=== PATIENT | female | born 1960 | race African-American/Black ===

== ENCOUNTER → 2018-04-02 | Day surgery (SDC) | payer BC, OTHER ==
[2018-04-01 15:57] VITALS: BMI 32.9
[~2018-04-02] MED LIST: ACETAMINOPHEN 325 MG TABLET (FP) PO PRN; BSS (NA/CA/MG/K) BALANCED SALT SOLUTION OPHTH SOLN 15 ML BOTTLE OS ONE; CHONDROITIN SU A/HYALUR SOD 1 KIT IO ONE; CYCLOPENTOLATE HCL 1% OPHTH SOLN 2 ML BOTTLE OP SCH; CYCLOPENTOLATE HCL 1% OPHTH SOLN 2 ML BOTTLE OS ONE; EPINEPHrine/PF 1 MG/1 ML (1:1,000) AMPULE IO ONE; KETOROLAC TROMETHAMINE 0.5% EYE DROP 1 DROP DROPS OP SCH; KETOROLAC TROMETHAMINE 0.5% EYE DROP 1 DROP DROPS OS ONE; LIDOCAINE HCL 1% PRESERVATIVE FREE - 30ML VIAL IO ONE; OFLOXACIN 0.3% OPHTHALMIC SOLUTION 5 ML BOTTLE OP SCH; OFLOXACIN 0.3% OPHTHALMIC SOLUTION 5 ML BOTTLE OS ONE; PHENYLEPHRINE 2.5% OPHTH SOLN 15 ML BOTTLE OP SCH; PHENYLEPHRINE 2.5% OPHTH SOLN 15 ML BOTTLE OS ONE; POVIDONE-IODINE 5% OPHTHALMIC PREP 30 ML SOLUTION OS ONE; TETRACAINE 0.5% OPHTH SOLN 2 ML BOTTLE OS ONE; TROPICAMIDE 0.5% OPHTHALMIC SOLN 15 ML BOTTLE OS ONE; TROPICAMIDE 1% OPHTH SOLN 15 ML BOTTLE OP SCH; TROPICAMIDE 1% OPHTH SOLN 15 ML BOTTLE OS ONE
[2018-04-02 13:16] VITALS: PULSE 89
[2018-04-02 15:50] VITALS: BP 137/74; TEMP 97.9
--- NOTE | 2018-04-03 08:01 | SPEC ---
DATE OF SURGERY: DATE OF DICTATION: 04/02/2018 OPERATION: Phacoemulsification with posterior chamber intraocular lens implantation, left eye. Lens used [id number], 23.0 Diopter power, Serial No. [id number]. 045/ PREOPERATIVE DIAGNOSIS: Cataract, left eye. POSTOPERATIVE DIAGNOSIS: Cataract, left eye. SURGEON: Antonina Zhu M.D. ANESTHESIA: Topical MAC. COMPLICATIONS: None. PROCEDURE: The patient was brought to the operating room and correctly identified along with the operative site and the correct intraocular lens poon. The patient was then prepped and draped in the usual sterile fashion including 5% Betadine solution in the conjunctival sac and an eyelid drape. An eyelid speculum was then placed in the eye. A paracentesis port was created and approximately 0.5 mL of preservative free Lidocaine was then injected into the eye. Viscoelastic was then injected to inflate the anterior chamber. A temporal clear corneal wound was created. A continuous circular capsulorrhexis was performed. The nucleus was then hydrodissected with BSS and removed with phacoemulsification. The remaining cortical material was irrigated and aspirated. Viscoelastic was injected to inflate the capsular bag and the intraocular lens was then implanted into the capsular bag. The remaining Viscoelastic was irrigated and aspirated from the eye. The IOL was noted to be well centered and completely covered by the anterior capsulorrhexis. Topical vancomycin was placed and the eye patched and shielded. All wounds were tested and found to be watertight. No suture was placed. The eye was then shielded. The patient was then discharged from the operating room in stable condition. ANTONINA ZHU M.D. [id number]
== END | disposition home or self-care (01) ==
LOC: JASU-SURG 10:00
PROVIDERS: ATTEND Ophthalmology
PROC: 08RK3JZ Replacement of Left Lens with Synthetic Substitute, Percutaneous Approach (ICD-10-PCS; principal; 2018-04-02 12:00)
DX: H26.9 Unspecified cataract (principal)

== ENCOUNTER 2018-04-16 06:55 | Day surgery (SDC) | payer BC, OTHER ==
[2018-04-15 08:44] VITALS: BMI 32.9
[2018-04-16] MEDS ORDERED: CYCLOPENTOLATE HCL 1% OPHTH SOLN 2 ML BOTTLE ONE (07:12)
[2018-04-16] MEDS ORDERED: PHENYLEPHRINE 2.5% OPHTH SOLN 15 ML BOTTLE ONE (07:12)
[2018-04-16] MEDS ORDERED: OFLOXACIN 0.3% OPHTHALMIC SOLUTION 5 ML BOTTLE ONE (07:12)
[2018-04-16 07:13] VITALS: TEMP 97.5
[2018-04-16] MEDS ORDERED: TROPICAMIDE 1% OPHTH SOLN 15 ML BOTTLE ONE (07:13)
[2018-04-16] MEDS ORDERED: PHENYLEPHRINE 2.5% OPHTH SOLN 15 ML BOTTLE OD ONE ×3 (07:15→07:25)
[2018-04-16] MEDS ORDERED: TROPICAMIDE 1% OPHTH SOLN 15 ML BOTTLE OD ONE ×3 (07:15→07:25)
[2018-04-16] MEDS ORDERED: OFLOXACIN 0.3% OPHTHALMIC SOLUTION 5 ML BOTTLE OD ONE ×3 (07:15→07:25)
[2018-04-16] MEDS ORDERED: CYCLOPENTOLATE HCL 1% OPHTH SOLN 2 ML BOTTLE OD ONE ×3 (07:15→07:25)
[2018-04-16] MEDS ORDERED: ACETAMINOPHEN 325 MG TABLET (FP) PO PRN (07:55)
[2018-04-16] MEDS ORDERED: KETOROLAC TROMETHAMINE 0.5% EYE DROP 1 DROP DROPS OD SCH (08:00)
[2018-04-16] MEDS ORDERED: OFLOXACIN 0.3% OPHTHALMIC SOLUTION 5 ML BOTTLE OD SCH (08:00)
[2018-04-16] MEDS ORDERED: PHENYLEPHRINE 2.5% OPHTH SOLN 15 ML BOTTLE OD SCH (08:00)
[2018-04-16] MEDS ORDERED: TROPICAMIDE 1% OPHTH SOLN 15 ML BOTTLE OD SCH (08:00)
[2018-04-16] MEDS ORDERED: CYCLOPENTOLATE HCL 1% OPHTH SOLN 2 ML BOTTLE OD SCH (08:00)
[2018-04-16] MEDS ORDERED: MIDAZOLAM HCL 2 MG/2 ML SINGLE DOSE VIAL ONE (08:07)
[2018-04-16] MEDS ORDERED: ADENOSINE 6 MG/2 ML VIAL IVPUSH ONE (08:07)
[2018-04-16] MEDS ORDERED: TETRACAINE 0.5% OPHTH SOLN 2 ML BOTTLE OD ONE (08:12)
[2018-04-16] MEDS ORDERED: POVIDONE-IODINE 5% OPHTHALMIC PREP 30 ML SOLUTION OD ONE (08:15)
[2018-04-16] MEDS ORDERED: LIDOCAINE HCL 1% PRESERVATIVE FREE - 30ML VIAL IO ONE (08:23)
[2018-04-16] MEDS ORDERED: CHONDROITIN SU A/HYALUR SOD 1 KIT IO ONE (08:23)
[2018-04-16] MEDS ORDERED: BSS (NA/CA/MG/K) BALANCED SALT SOLUTION OPHTH SOLN 15 ML BOTTLE OD ONE (08:23)
[2018-04-16] MEDS ORDERED: EPINEPHrine/PF 1 MG/1 ML (1:1,000) AMPULE SQ ONE (08:30)
--- NOTE | 2018-04-16 09:00 | SPEC ---
DATE OF OPERATION: DATE OF DICTATION: 04/16/2018 OPERATION: Phacoemulsification with posterior chamber intraocular lens implantation, right eye. Lens used SN60WF, 23.0 Diopter power, Serial No. [id number]. PREOPERATIVE DIAGNOSIS: Cataract, right eye. POSTOPERATIVE DIAGNOSIS: Cataract, right eye. SURGEON: Antonina Zhu M.D. ANESTHESIA: Topical MAC. COMPLICATIONS: None. PROCEDURE: The patient was brought to the operating room and correctly identified along with the operative site and the correct intraocular lens poon. The patient was then prepped and draped in the usual sterile fashion including 5% Betadine solution in the conjunctival sac and an eyelid drape. An eyelid speculum was then placed in the eye. A paracentesis port was created and approximately 0.5 mL of preservative free Lidocaine was then injected into the eye. Viscoelastic was then injected to inflate the anterior chamber. A temporal clear corneal wound was created. A continuous circular capsulorrhexis was performed. The nucleus was then hydrodissected with BSS and removed with phacoemulsification. The remaining cortical material was irrigated and aspirated. Viscoelastic was injected to inflate the capsular bag and the intraocular lens was then implanted into the capsular bag. The remaining Viscoelastic was irrigated and aspirated from the eye. The IOL was noted to be well centered and completely covered by the anterior capsulorrhexis. Topical vancomycin was placed and the eye patched and shielded. All wounds were tested and found to be watertight. No suture was placed. The eye was then shielded. The patient was then discharged from the operating room in stable condition. ANTONINA ZHU M.D. [id number]
[2018-04-16] MEDS ORDERED: ACETAMINOPHEN 325 MG TABLET (FP) ONE (09:47)
[2018-04-16 11:57] VITALS: BP 111/62; PULSE 86
== END 2018-04-16 11:25 | disposition home or self-care (01) ==
LOC: JASU-SURG 06:55
PROVIDERS: ATTEND Ophthalmology
PROC: 08RJ3JZ Replacement of Right Lens with Synthetic Substitute, Percutaneous Approach (ICD-10-PCS; principal; 2018-04-16 08:00)
DX: H26.9 Unspecified cataract (principal)
CPT/HCPCS: 82962

== ENCOUNTER 2023-12-26 14:04 | Observation (INO) | payer OTHER ==
[2023-12-26] MEDS ORDERED: DEXTROSE 50%-WATER 25 GM/50 ML DISP.SYRIN ONE (14:43)
[2023-12-26] MEDS: DEXTROSE 50%-WATER 25 GM/50 ML DISP.SYRIN IVPUSH ONE (14:46)
[2023-12-26 15:07] VITALS: BMI 31.1
[2023-12-26] MEDS ORDERED: ACETAMINOPHEN 325 MG TABLET (FP) ONE (16:09)
[2023-12-26 16:24] LABS: VENOUS BASE EXCESS -2.5 mmol/L (-2-2); VENOUS O2 SATURATION 92.7 % (70-80); VENOUS PCO2 35.9 mmHg (38-52); VENOUS PH 7.4 (7.310-7.410)
[2023-12-26] MEDS: DEXTROSE 10%-WATER - 1,000 ML IV SCH (16:33)
[2023-12-26] MEDS: ACETAMINOPHEN 325 MG TABLET (FP) PO ONE (16:50)
[2023-12-26 16:59] LABS: LACTIC ACID 2.3 mmol/L (0.4-2.0)
[2023-12-26 17:02] LABS: BASO % 0.2 % (0-2.0); EOS % 0.1 % (0-4.5); HEMATOCRIT 36.4 % (32.4-45.2); HEMOGLOBIN 12.3 GM/dL (10.7-15.3); LYMPH % 8.1 % (8-40); MCH 31.3 pg (25.7-33.7); MCHC 33.7 g/dl (32.0-36.0); MEAN CELL VOLUME 92.8 fl (80-96); MEAN PLT VOLUME 9.9 fl (7.5-11.1); MONO % 4.8 % (3.8-10.2); NEUT % 86.8 % (42.8-82.8); PLATELET COUNT 200 10^3/uL (134-434); RBC 3.92 M/mm3 (3.60-5.2); WHITE BLOOD COUNT 17.1 K/mm3 (4.0-10.0)
[2023-12-26 17:27] LABS: CHLORIDE 111 mmol/L (98-107); POTASSIUM 3.7 mmol/L (3.5-5.1); SODIUM 139 mmol/L (136-145)
[2023-12-26 17:37] LABS: ALBUMIN 3.7 g/dl (3.4-5.0); ALK PHOS 135 U/L (45-117); ANION GAP 6 mmol/L (4-13); BILIRUBIN,TOTAL 0.4 mg/dL (0.2-1); BLOOD UREA NITROGEN 23.2 mg/dL (7-18); CALCIUM 9.3 mg/dL (8.5-10.1); CO2 23 mmol/L (21-32); MAGNESIUM 1.5 mg/dL (1.8-2.4); TOT PROT 7.6 g/dl (6.4-8.2)
[2023-12-26 17:39] LABS: SGOT/AST 30 U/L (15-37)
[2023-12-26 17:40] LABS: CREATININE 0.8 mg/dL (0.55-1.3); PHOSPHOROUS 2.9 mg/dL (2.5-4.9); SGPT/ALT 30 U/L (13-61)
[2023-12-26 17:52] LABS: GLUCOSE,RANDOM 37 mg/dL (74-106)
[2023-12-26] MEDS ORDERED: MAGNESIUM SULFATE IN WATER 2 GM/50 ML IVPB IVPB ONE (20:06)
[2023-12-26] MEDS: MAGNESIUM SULF 50% (8.12 MEQ/2 ML-1 GM VIAL) IVPB ONE (20:14)
[2023-12-26 22:19] LABS: PH,URINE 5.5 (5.0-8.0); URINE APPEARANCE CLEAR; URINE BILIRUBIN NEGATIVE (NEGATIVE); URINE COLOR YELLOW; URINE GLUCOSE (UA) TRACE (NEGATIVE); URINE KETONE NEGATIVE (NEGATIVE); URINE LEUK ESTERASE NEGATIVE (NEGATIVE); URINE NITRITE NEGATIVE (NEGATIVE); URINE PROTEIN TRACE (NEGATIVE); URINE UROBILINOGEN 0.2 mg/dL (0.2-1.0)
[2023-12-27] MEDS: INSULIN (NOVOLOG) ASPART 100 UNITS/ML 10ML VIAL SQ ONE (01:05)
[2023-12-27] MEDS ORDERED: ALBUTEROL SO4 HFA INHALER IH PRN (04:43)
[2023-12-27] MEDS: INSULIN ASPART SLIDING SCALE (NOVOLOG) 1 VIAL SQ SCH (06:02)
[2023-12-27] MEDS ORDERED: INSULIN (NOVOLOG) ASPART 100 UNITS/ML 10ML VIAL ONE ×4 (06:04→21:34)
[2023-12-27 08:44] LABS: HEMATOCRIT 35.7 % (32.4-45.2); HEMOGLOBIN 11.9 GM/dL (10.7-15.3); MCHC 33.3 g/dl (32.0-36.0); MEAN CELL VOLUME 92.9 fl (80-96); MEAN PLT VOLUME 9.8 fl (7.5-11.1); PLATELET COUNT 177 10^3/uL (134-434); RBC 3.85 M/mm3 (3.60-5.2); RDW 14.6 % (11.6-15.6); WHITE BLOOD COUNT 8.5 K/mm3 (4.0-10.0)
[2023-12-27 09:11] LABS: CALCIUM 9.1 mg/dL (8.5-10.1)
[2023-12-27 09:12] LABS: ALBUMIN 3.4 g/dl (3.4-5.0); BLOOD UREA NITROGEN 18.1 mg/dL (7-18); MAGNESIUM 1.6 mg/dL (1.8-2.4)
[2023-12-27 09:15] LABS: CREATININE 0.8 mg/dL (0.55-1.3)
[2023-12-27 09:16] LABS: BILIRUBIN,TOTAL 0.5 mg/dL (0.2-1)
[2023-12-27] MEDS: ENOXAPARIN NA (PORCINE) 40 MG/0.4 ML DISP.SYRIN SQ SCH (10:12)
[2023-12-27] MEDS: SOLIFENACIN SUCCINATE 5 MG TAB PO SCH (10:12)
[2023-12-27] MEDS: ATORVASTATIN CA 40 MG TABLET (FP) PO SCH (21:53)
[2023-12-27] MEDS: GABAPENTIN 100 MG CAPSULE PO SCH (21:53)
[2023-12-27] MEDS: LATANOPROST 0.005% OPHTH SOLN 2.5ML BOTTLE OU SCH (22:29)
[2023-12-28 08:43] LABS: BASO % 0.6 % (0-2.0); EOS % 2.2 % (0-4.5); HEMATOCRIT 37.6 % (32.4-45.2); HEMOGLOBIN 12.3 GM/dL (10.7-15.3); LYMPH % 30.1 % (8-40); MCHC 32.7 g/dl (32.0-36.0); MEAN CELL VOLUME 94.6 fl (80-96); MEAN PLT VOLUME 9.5 fl (7.5-11.1); NEUT % 60.1 % (42.8-82.8); PLATELET COUNT 168 10^3/uL (134-434); RBC 3.97 M/mm3 (3.60-5.2); RDW 14.2 % (11.6-15.6); WHITE BLOOD COUNT 5.6 K/mm3 (4.0-10.0)
[2023-12-28 09:00] LABS: POTASSIUM 4.5 mmol/L (3.5-5.1)
[2023-12-28 09:07] LABS: CALCIUM 9.1 mg/dL (8.5-10.1)
[2023-12-28 09:08] LABS: ALBUMIN 3.3 g/dl (3.4-5.0); BLOOD UREA NITROGEN 14.2 mg/dL (7-18)
[2023-12-28 09:11] LABS: CREATININE 0.8 mg/dL (0.55-1.3)
[2023-12-28 09:12] LABS: BILIRUBIN,TOTAL 0.6 mg/dL (0.2-1)
[2023-12-28 14:06] VITALS: BP 114/62; PULSE 99; RESP 18; TEMP 97.7
== END 2023-12-28 14:50 | disposition home or self-care (01) ==
LOC: JER 14:04 → JERBED 21:14 → UNDOADMOB 21:14 → INTOOBSV 23:41 → OBSVTOIN 23:41 → J8W 12-27 00:15 → JERBED 12-27 00:15 → J8W 12-27 12:14
PROVIDERS: ADMIT Internal Medicine; ATTEND Internal Medicine
PROC: 3E033GC Introduction of Other Therapeutic Substance into Peripheral Vein, Percutaneous Approach (ICD-10-PCS; principal; 2023-12-27)
PROC: 3E0337Z Introduction of Electrolytic and Water Balance Substance into Peripheral Vein, Percutaneous Approach (ICD-10-PCS; 2023-12-27)
PROC: 3E023GC Introduction of Other Therapeutic Substance into Muscle, Percutaneous Approach (ICD-10-PCS; 2023-12-27)
PROC: 3E013VG Introduction of Insulin into Subcutaneous Tissue, Percutaneous Approach (ICD-10-PCS; 2023-12-27)
DX: E10.649 Type 1 diabetes mellitus with hypoglycemia without coma (principal); Z79.4 Long term (current) use of insulin; Z29.89 Encounter for other specified prophylactic measures; J45.909 Unspecified asthma, uncomplicated; E78.5 Hyperlipidemia, unspecified; Z85.01 Personal history of malignant neoplasm of esophagus
CPT/HCPCS: 0241U-QW; 36415; 71045-TC-FY; 71275-TC; 80053; 81003; 82010; 82803; 82962; 83036; 83605; 83690; 83735; 84100; 84443; 84484; 85025; 85027; 87086; 93005; 93010; 99285-25; G0378; Q9967